=== PATIENT | male | born 1970 | race Hispanic/Latino ===

== ENCOUNTER 2021-05-17 16:09 | Emergency (ER) | payer SELFPAY ==
[2021-05-17] MEDS ORDERED: Dexamethasone 10 MG/ML VIAL ONE (17:00)
[2021-05-17] MEDS ORDERED: HYDROcodone/Acetaminophen 5/325 mg Tablet ONE (17:01)
[2021-05-17] MEDS ORDERED: Cyclobenzaprine 10 MG TAB ONE (17:01)
[2021-05-17] MEDS ORDERED: Ketorolac Tromethamine 30 MG/ML VIAL ONE (17:01)
== END 2021-05-17 18:55 | disposition home or self-care (01) ==
LOC: CSHERS 16:09
DX: M54.41 Lumbago with sciatica, right side (principal); I10 Essential (primary) hypertension; F17.220 Nicotine dependence, chewing tobacco, uncomplicated
CPT/HCPCS: 72100; 96372; J1100; J1885

== ENCOUNTER 2021-05-21 10:53 | Emergency (ER) | payer SELFPAY ==
[2021-05-21] MEDS ORDERED: Acetaminophen 500 MG TAB ONE (12:35)
[2021-05-21] MEDS ORDERED: Dexamethasone 10 MG/ML VIAL ONE (12:35)
[2021-05-21] MEDS ORDERED: Ketorolac Tromethamine 30 MG/ML VIAL ONE (12:35)
[2021-05-21] MEDS ORDERED: HYDROcodone/Acetaminophen 5/325 mg Tablet ONE (12:36)
== END 2021-05-21 14:05 | disposition left against medical advice (07) ==
LOC: CSHERS 10:53
DX: M54.50 Low back pain, unspecified (principal); I10 Essential (primary) hypertension; F17.220 Nicotine dependence, chewing tobacco, uncomplicated; Z79.52 Long term (current) use of systemic steroids; Z79.899 Other long term (current) drug therapy
CPT/HCPCS: 96372; 96374; J1100; J1885